=== PATIENT | male | born 1985 | race Caucasian/White ===

== ENCOUNTER 2017-02-18 10:57 | Emergency (ER) | payer OTHER ==
[~2017-02-18] VITALS: Ht 175.3 cm; Wt 131.5 kg
--- NOTE | 2017-02-18 11:14 | NUR ---
DR SIMMONS AT THE BEDSIDE FOR EVAL AND EXAM.
[2017-02-18] MEDS: HYDROCODONE/APAP 10-325 MG TABLET PO ONE (11:21)
[2017-02-18] MEDS: IBUPROFEN 800 MG TABLET PO ONE (11:21)
[2017-02-18] MEDS ORDERED: IBUPROFEN 800 MG TABLET ONE (11:29)
[2017-02-18] MEDS ORDERED: HYDROCODONE/APAP 10-325 MG TABLET ONE (11:29)
--- NOTE | 2017-02-18 11:46 | NUR ---
PT STATES FEELING BETTER AND WISHES TO BE DISCHARGE.
[2017-02-18 11:48] VITALS: BP 134/97
--- NOTE | 2017-02-18 11:59 | NUR ---
Patient discharged to home in stable conditon. Written and verbal after care instructions given. Patient verbalizes understanding of instructions.
== END 2017-02-18 11:59 | disposition home or self-care (01) ==
LOC: ER 10:57 → EDSEX 10:57 → ER 11:59
DX: S39.012A Strain of muscle, fascia and tendon of lower back, initial encounter (principal); X58.XXXA Exposure to other specified factors, initial encounter; Y93.89 Activity, other specified; Y92.9 Unspecified place or not applicable; Y99.9 Unspecified external cause status
CPT/HCPCS: A4663

== ENCOUNTER 2017-05-11 08:24 | Emergency (ER) | payer SELFPAY ==
[~2017-05-11] VITALS: Ht 175.3 cm; Wt 136.1 kg
[2017-05-11] MEDS ORDERED: META800T85 PO (08:35)
[2017-05-11] MEDS ORDERED: HYDR-3326 PO (08:35)
--- NOTE | 2017-05-11 08:57 | NUR ---
Patient discharged to home in stable conditon. Written and verbal after care instructions given. Patient verbalizes understanding of instructions.pt walks in steady gait
[2017-05-11] MEDS ORDERED: IBUPROFEN 600 MG TABLET PO ONE (09:00)
[2017-05-11] MEDS ORDERED: IBUPROFEN 600 MG TABLET ONE (09:08)
== END 2017-05-11 08:59 | disposition home or self-care (01) ==
LOC: ER 08:24
DX: M54.9 Dorsalgia, unspecified (principal); M54.2 Cervicalgia; I10 Essential (primary) hypertension; Z79.899 Other long term (current) drug therapy
CPT/HCPCS: A4663

== ENCOUNTER 2025-10-09 17:20 | Emergency (ER) | payer MEDICAID ==
[~2025-10-09] VITALS: Ht 175.3 cm; Wt 172.4 kg
[~2025-10-09 17:20] MED LIST: HYDR-3326 PO; META800T85 PO
[2025-10-09 17:28] VITALS: BP 160/100
[2025-10-09] MEDS ORDERED: LIDOCAINE 5% PATCH TD ONE (17:57)
[2025-10-09] MEDS ORDERED: IBUPROFEN 600 MG TABLET ONE (17:57)
[2025-10-09] MEDS: IBUPROFEN 600 MG TABLET PO ONE (17:58)
[2025-10-09] MEDS: LIDOCAINE 5% PATCH TD ONE (17:58)
[2025-10-09] MEDS ORDERED: IBUP600T51 PO (18:15)
[2025-10-09] MEDS ORDERED: LIDO700A30 TP (18:15)
[2025-10-09] MEDS ORDERED: HYDR-4209 PO (18:15)
[2025-10-09 18:21] VITALS: BP 156/91; O2SAT 95
== END 2025-10-09 18:21 | disposition home or self-care (01) ==
LOC: ER 17:20
DX: S13.4XXA Sprain of ligaments of cervical spine, initial encounter (principal); S16.1XXA Strain of muscle, fascia and tendon at neck level, initial encounter; S43.401A Unspecified sprain of right shoulder joint, initial encounter; S73.101A Unspecified sprain of right hip, initial encounter; S93.401A Sprain of unspecified ligament of right ankle, initial encounter; S00.03XA Contusion of scalp, initial encounter; I11.9 Hypertensive heart disease without heart failure; G89.29 Other chronic pain; Z88.7 Allergy status to serum and vaccine; Z79.891 Long term (current) use of opiate analgesic; W01.198A Fall on same level from slipping, tripping and stumbling with subsequent striking against other object, initial encounter; Y93.89 Activity, other specified; Y92.89 Other specified places as the place of occurrence of the external cause; Y99.9 Unspecified external cause status
CPT/HCPCS: A4606; A4663